=== PATIENT | male | born 1990 | race Caucasian/White ===

== ENCOUNTER 2021-04-23 13:03 | Emergency (ER) | payer OTHER ==
[2021-04-23 13:38] LABS: HEMOGLOBIN 14.6 gm/dl (14.0-17.5); RED BLOOD COUNT 5.04 M/UL (4.20-5.50)
[2021-04-23 14:04] LABS: BUN/CREATININE RATIO 13 (0-10)
== END 2021-04-23 15:00 | disposition home or self-care (01) ==
LOC: ER1 13:03
PROVIDERS: Physician Assistant
DX: R07.9 Chest pain, unspecified (principal); M54.2 Cervicalgia; F17.200 Nicotine dependence, unspecified, uncomplicated
CPT/HCPCS: 71045; 80053; 82550; 82553; 83874; 84484; 85025; 93005; 96372; 99285; J1885